=== PATIENT | male | born 1955 | race Caucasian/White ===

== ENCOUNTER 2016-06-28 13:05 | Emergency (ER) | payer OTHER ==
[~2016-06-28] VITALS: Ht 177.8 cm; Wt 101.0 kg
[~2016-06-28 13:05] MED LIST: ASPI81TA82 PO; FAMO20 PO; META0.52 PO; NEXI40CA PO; SYNT137T PO
[2016-06-28 13:10] VITALS: BP 124/79; PULSE 75; RESP 16; TEMP 98.9; O2SAT 97
[2016-06-28] MEDS ORDERED: ASPI81CH7 CHEW (13:18)
[2016-06-28] MEDS ORDERED: NEXI20CA PO (13:18)
[2016-06-28] MEDS ORDERED: LEVO-86 PO (13:18)
--- NOTE | 2016-06-28 13:30 | PD ---
HPI Chief Complaint: Pain: Acute or Chronic Time Seen by Provider: 13:17 Travel History International Travel<30 days: No Contact w/Intl Traveler<30days: No Traveled to known affect area: No History of Present Illness HPI This patient is worried about having a blood clot in his right leg. He has a history of 1 DVT 2 years ago. He got this first DVT right after a drive to [place]. 2 days ago he got here after a drive from [place]. The day after his drive he developed some pain and pressure in his right upper calf. Duration of this is 24 hours. Severity is moderate. There is no injury. No fever. He is worried about having a second blood clot. No alleviating factors. PFSH Past Medical History Hx Anticoagulant Therapy: Yes (ASA 81MG) Cardiovascular Problems: No Chemotherapy: No Cerebrovascular Accident: No Diabetes: No Diminished Hearing: No Deep Vein Thrombosis: Yes GERD: Yes Respiratory: No Thyroid Disease: Yes (hypo) Tetanus Vaccination: Unknown Past Surgical History Other Surgery: Yes (knee surgery, hernia surgery) Social History Alcohol Use: Yes (rarely) Tobacco Use: No Substance Use: No Allergies-Medications (Allergen,Severity, Reaction): Coded Allergies: No Known Allergies (Unverified , 06/28/16) Reported Meds & Prescriptions Reported Meds & Active Scripts Active Reported Synthroid (Levothyroxine Sodium) 137 Mcg Tab 137 Mcg PO DAILY Nexium (Esomeprazole DR) 20 Mg Capdr 20 Mg PO DAILY Aspirin Children's (Aspirin) 81 Mg Chew 81 Mg CHEW DAILY Review of Systems General / Constitutional: No: Fever Eyes: No: Visual changes HENT: No: Headaches Cardiovascular: No: Chest Pain or Discomfort Respiratory: No: Shortness of Breath Gastrointestinal: No: Abdominal Pain Genitourinary: No: Dysuria Musculoskeletal: Positive: Myalgias, Cramping, Pain Skin: No Rash Neurologic: No: Weakness Psychiatric: No: Depression Endocrine: No: Polydipsia Hematologic/Lymphatic: No: Easy Bruising Physical Exam Narrative GENERAL: Well-nourished, well-developed patient in no apparent distress. SKIN: Focused skin assessment reveals no rash and nodules. Skin is Warm and dry. HEAD: Atraumatic. Normocephalic. EYES: Pupils equal and round. No scleral icterus. No injection or drainage. ENT: No nasal bleeding or discharge. Mucous membranes pink and moist. NECK: Trachea midline. No JVD. CARDIOVASCULAR: Regular rate and rhythm. No murmur appreciated. RESPIRATORY: No accessory muscle use. Clear to auscultation. Breath sounds equal bilaterally. GASTROINTESTINAL: Abdomen soft, non-tender, nondistended. Hepatic and splenic margins not palpable. MUSCULOSKELETAL: No obvious deformities. No clubbing. No cyanosis. No edema. There is no obvious swelling or redness or bruising of the right calf. The proximal portion has some mild tenderness. NEUROLOGICAL: Awake and alert. No obvious cranial nerve deficits. Motor grossly within normal limits. Normal speech. PSYCHIATRIC: Appropriate mood and affect; insight and judgment normal. Data Data Last Documented VS Vital Signs Date Time Temp Pulse Resp B/P Pulse Ox O2 Delivery O2 Flow Rate FiO2 06/28/16 13:10 98.9 75 16 124/79 97 Orders Us Leg Venous Doppler (06/28/16 ) MDM Medical Decision Making Medical Screen Exam Complete: Yes Emergency Medical Condition: Yes Medical Record Reviewed: Yes Differential Diagnosis DVT, ligament strain, myalgia Narrative Course Like the one she has had an 85 84 I was replaced. Patient go to the recliner then is assigned to down He left the patient's newly is to see patient's own work 16 hours a day 6 days a week I have reviewed the patient's electronic medical record. We discuss different options and the risks and benefits of each. Patient is here after [address] getting right calf pain with history of prior DVT. That puts him at significant risk. I've ordered an ultrasound to evaluate for DVT. Ultrasound is negative Stable for outpatient follow-up Diagnosis Primary Impression: Right calf pain Additional Instructions: The patient was advised to follow up with their physician and return if they worsen. Med/Other Pt SpecificInfo: Other Disposition: 01 DISCHARGE HOME Condition: Stable Reg Nick MD Jun 28, 2016 13:30
--- NOTE | 2016-06-28 14:09 | RADHPO ---
EXAM DATE/TIME: 06/28/2016 13:54 [facility] COMPARISON: No previous studies available for comparison. INDICATIONS : Right leg and calf pain. MEDICAL HISTORY : Gastroesophageal reflux disease. Hypothyroidism. DVT. SURGICAL HISTORY : Knee surgery. Hernia. ENCOUNTER: Initial ACUITY: 1 day PAIN SCORE: 1/10 LOCATION: Right leg. TECHNIQUE: Venous ultrasound of the leg was performed from the inguinal ligament to the proximal calf. Real-bonnie e, color Doppler and spectral tracing, compression and augmentation techniques were used. FINDINGS: There is normal compressibility of the deep venous system from the inguinal region to the proximal ca lf. No echogenic clot is seen in the lumen of the common femoral, femoral, popliteal, and posterior tibial veins. There is a normal response of the venous system to proximal and distal augmentation an d respiration. CONCLUSION: Normal examination. Johny Garcia MD on June 28, 2016 at 14:07 Board Certified Radiologist. This report was verified electronically.
== END 2016-06-28 14:58 | disposition home or self-care (01) ==
LOC: PHED 13:05
DX: M79.661 Pain in right lower leg (principal); K21.9 Gastro-esophageal reflux disease without esophagitis; Z79.01 Long term (current) use of anticoagulants; Z86.718 Personal history of other venous thrombosis and embolism
CPT/HCPCS: 93971